=== PATIENT | male | born 1970 ===

== ENCOUNTER 2020-12-13 13:34 | Outpatient (CLI) | payer OTHER | END 2020-12-13 13:53 | disposition home or self-care (01) | LOC: MAMO-SONO 13:34 | PROVIDERS: ATTEND Internal Medicine | DX: N60.02 Solitary cyst of left breast (principal); Z12.31 Encounter for screening mammogram for malignant neoplasm of breast; N64.59 Other signs and symptoms in breast ==

== ENCOUNTER 2020-12-27 08:06 | Outpatient (CLI) | payer OTHER | END 2020-12-27 08:08 | disposition home or self-care (01) | LOC: SONOGRAMA 08:06 | PROVIDERS: ATTEND Urology | DX: N40.1 Benign prostatic hyperplasia with lower urinary tract symptoms (principal) ==